=== PATIENT | female | born 1955 | race Caucasian/White ===

== ENCOUNTER → 2023-12-17 17:02 | Outpatient (REF) | payer MEDICARE, OTHER, SELFPAY | LOC: PAVMRI 17:02 | PROVIDERS: ATTENDING PHYSICIAN Specialist; FAMILY PHYSICIAN Family Medicine | DX: M25.561 Pain in right knee (principal); Z98.890 Other specified postprocedural states | CPT/HCPCS: 73721 ==

== ENCOUNTER → 2024-04-21 12:12 | Outpatient (REF) | payer MEDICARE, OTHER, SELFPAY | LOC: HWRAD 12:12 | PROVIDERS: ATTENDING PHYSICIAN Internal Medicine Cardiovascular Disease; FAMILY PHYSICIAN Family Medicine | DX: Z87.39 Personal history of other diseases of the musculoskeletal system and connective tissue (principal); Z82.49 Family history of ischemic heart disease and other diseases of the circulatory system | CPT/HCPCS: 75571 ==

== ENCOUNTER → 2024-11-05 15:17 | Outpatient (REF) | payer MEDICARE, OTHER, SELFPAY | LOC: PAVMRI 15:17 | PROVIDERS: ATTENDING PHYSICIAN Specialist; FAMILY PHYSICIAN Family Medicine | DX: M25.561 Pain in right knee (principal) | CPT/HCPCS: 73721 ==

== ENCOUNTER 2025-02-22 14:43 | Emergency (ER) | payer MEDICARE, OTHER, SELFPAY ==
[2025-02-22 14:51] VITALS: BP 133/80
[2025-02-22 15:08] LABS: % Basophils 0.7 % (0-2); % Eosinophils 0.5 % (0-6); % Immature Granulocytes 0.4 % (0-0.5); % Lymphocytes 8.9 % (20.5-51.1); % Monocytes 4.8 % (1.7-9.3); % Neutrophils 84.7 % (42.2-75.2); Absolute Basophils 0.1 10^3/uL (0-0.2); Absolute Eosinophils 0.1 10^3/uL (0-0.7); Absolute Immature Granulocytes 0.1 10^3/uL (0-0.05); Absolute Lymphocytes 1.6 10^3/uL (1.2-3.4); Absolute Monocytes 0.9 10^3/uL (0.1-0.6); Hematocrit 41.4 % (37.0-47.0); Hemoglobin 14.1 g/dL (12.0-16.0); Mean Corp Hgb Conc. 34.1 g/dL (33.0-37.0); Mean Corpuscular Hgb 29.9 pg (27.0-31.0); Mean Corpuscular Volume 87.7 fL (81.0-99.0); Mean Platelet Volume 9.8 fL (7.4-10.4); Nucleated Red Blood Cells % 0 %; Platelet Count 416 10^3/uL (130-400); Red Blood Cell Count 4.72 10^6/uL (4.20-5.40); Red Cell Dist. Width 14.3 % (11.5-14.5); White Blood Cell Count 17.7 10^3/uL (4.8-10.8)
[2025-02-22 15:26] LABS: ALT (SGPT) 16 U/L (0-35); AST (SGOT) 18 U/L (14-36); Albumin 4.2 g/dl (3.5-5.0); Alkaline Phosphatase 61 U/L (38-126); Blood Urea Nitrogen 10 mg/dl (7-17); Calcium 10.1 mg/dl (8.4-10.2); Carbon Dioxide 24 mmol/L (22-30); Chloride 105 mmol/L (98-107); Glucose 129 mg/dl (70-99); Potassium 4.2 mmol/L (3.5-5.1); Sodium 138 mmol/L (135-145); Total Bilirubin 0.7 mg/dl (0.2-1.3); Total Protein 6.8 g/dl (6.3-8.2); eGFR > 60.00
--- NOTE | 2025-02-22 17:24 | ED.GENMED ---
History of Present Illness
General
Chief Complaint: Skin Problem
Source: patient
Exam Limitations: none
Time Seen by Provider: 02/22/25 15:43
Nursing documentation reviewed up to this point in time: agreed with
History of Present Illness
History of Present Illness:
Patient presents to ED secondary to 2-day history of left elbow/forearm redness with swelling, along with low-grade fever. Denies nausea or vomiting. Denies direct trauma. Denies loss of sensation or weakness. Patient states that she woke up
yesterday morning with aforementioned swelling and redness. Denies previous history of skin infection. Denies change in activities. Denies removing insects or bugs.
Past History
Past History
ED Past Medical History: Arrthythmia and Other (Colitis, C-diff)
ED Past Surgical History: Appendectomy (2004)
Social History
Tobacco: Non-smoker
Alcohol: Occasional
Personal:
Living: with family
Review of Systems
Review of Systems
Allergies reviewed?: Yes
All Other Systems: ROS reviewed and negative except as documented in HPI and ROS
Constitutional: Reports fever
EENT: Reports no symptoms
ABD/GI: Reports no symptoms
Skin: Reports other (Arm swelling with redness)
Neurological: Reports no symptoms
Phy Exam
Physical Exam
Physical Exam:
Physical Exam
General: no apparent distress, not acutely ill. afebrile
Head: nc/at. eomi
Neck: supple. no meningeal signs.
Neuro: alert and oriented x 3. no focal neurological deficits
Skin: no rash
Psychiatric: well kept. interactive and cooperative
Extremities: left forearm: erythema along olecranon/proximal forearm with mild tenderness. no open drainage.
Course
Orders/Labs/Results
Orders:
Orders
02/22/25 15:00
Complete Blood Count/With Diff Urgent
Comprehensive Metabolic Panel Urgent
02/22/25 17:24
Doxycycline [Vibramycin] 100 mg PO NOW STA
Abnormal Lab Results
02/22/25
15:00
WBC 17.7 H 10^3/uL
(4.8-10.8)
Plt Count 416 H 10^3/uL
(130-400)
Abs Immat Gran (auto) 0.1 H 10^3/uL
(0-0.05)
Absolute Neuts (auto) 15.0 H 10^3/uL
(1.4-6.5)
Absolute Monos (auto) 0.9 H 10^3/uL
(0.1-0.6)
Neutrophils % 84.7 H %
(42.2-75.2)
Lymphocytes % 8.9 L %
(20.5-51.1)
Glucose 129 H mg/dl
(70-99)
02/22/25 15:00
02/22/25 15:00
Vital Signs
Initial and Last Documented VS:
Initial Vital Signs
Temp Pulse Resp BP Pulse Ox
99.4 F 104 18 133/80 98
02/22/25 14:51 02/22/25 14:51 02/22/25 14:51 02/22/25 14:51 02/22/25 14:51
Last Documented Vital Signs
Temp Pulse Resp BP Pulse Ox
99.4 F 104 18 133/80 98
02/22/25 14:51 02/22/25 14:51 02/22/25 14:51 02/22/25 14:51 02/22/25 14:51
MDM/Problems Addressed
MDM/Problems Addressed:
History and exam consistent with likely left elbow/forearm cellulitis. Exam inconsistent with olecranon bursitis. In light of low-grade fever along with patient's immunocompromise state, patient will be started on empiric antibiotics, i.e.
doxycycline, with recommendation to follow-up with her PCP this week. Patient advised to return to ED with worsening symptoms. Leukocytosis, likely reactive along with chronic prednisone use. Patient expresses understanding at time of discharge,
to the care of her spouse.
*Critical Care Note
Total Time (30-74mins, 75-104mins- exclusive of procedures): Not Applicable
ED Attending Note
-
Portions of this chart may have been created with voice recognition software.� Occasional wrong word or��sound alike� substitutions may have occurred due to the inherent limitations of voice recognition software.
Discharge Plan
Departure
Patient Disposition: Home (Routine Discharge)
Date of Disposition: 02/22/25
Time of Disposition: 17:24
Patient with high blood pressure during this ER visit?: Yes
Condition: Good
Discharge Problem:
Cellulitis
Instructions: Cellulitis (Skin Infection), Adult (DC)
Prescriptions:
New
doxycycline hyclate 100 mg tablet
100 mg PO BID Qty: 13 0RF
No Action
verapamil 120 MG tablet
120 mg PO QPM
aspirin 81 MG tablet,delayed release (DR/EC)
81 mg PO DAILY
polyvinyl alcohol-povidon(PF) [Refresh Classic (PF)] 10 DROPS dropperette
1 drp BOTH EYES DAILYPRN PRN (Reason: DRY EYES)
cyclosporine [Restasis] 10 DROPS dropperette
1 drp BOTH EYES BID
zolpidem [Ambien CR] 12.5 MG tablet,ext release multiphase
12.5 mg PO HSPRN PRN (Reason: SLEEP)
multivitamin with folic acid [Tab-A-Isabela] 1 TABLET tablet
1 tab PO DAILY
calcium carbonate-vitamin D3 [Caltrate 600 plus D] 1 EACH tablet,chewable
1 ea PO DAILY
oxycodone-acetaminophen 5 MG/325 MG tablet
1 tab PO Q4HPRN PRN (Reason: moderate to severe pain) Qty: 8 0RF
Referrals:
Gerard Villa, [Family Provider] -
Activity Restrictions/Additional Instructions:
As discussed, please follow-up with your primary care physician for reevaluation. Please consider return to ED with worsening symptoms. Your prescription has been sent electronically to [facility] pharmacy in [place].
Interventions
Interventions:
*Risk Screen - Suicide Last Done: 02/22/25 14:51
*General Assessment Last Done: 02/22/25 14:51
*Neglect/Abuse Screening Last Done: 02/22/25 14:51
*ED- Fall Risk Assessment Last Done: 02/22/25 15:48
*ED COVID-19 Vaccine History Last Done: 02/22/25 14:53
*Nursing Disposition Last Done: 02/22/25 17:50
ED-Skin Assessment Last Done: 02/22/25 15:48
Discharge Date and Time
Discharge Date/Time: 02/22/25 17:50
Print Language: SLOVENIAN
[2025-02-22] MEDS: VIBRAMYCIN 100 MG PO (17:32)
== END 2025-02-22 17:50 | disposition home or self-care (01) ==
LOC: EMR 14:43
PROVIDERS: Emergency Medicine; EMERGENCY PHYSICIAN Emergency Medicine; FAMILY PHYSICIAN Family Medicine
DX: L03.114 Cellulitis of left upper limb (principal); R03.0 Elevated blood-pressure reading, without diagnosis of hypertension
CPT/HCPCS: 99283; 80053; 85025

== ENCOUNTER → 2025-07-29 15:29 | Outpatient (REF) | payer MEDICARE, OTHER, SELFPAY | LOC: RAD 15:29 | PROVIDERS: ATTENDING PHYSICIAN Family Medicine | DX: D35.00 Benign neoplasm of unspecified adrenal gland (principal) | CPT/HCPCS: 74170; Q9967 ==

== ENCOUNTER → 2025-09-19 14:14 | Outpatient (REF) | payer MEDICARE, OTHER, SELFPAY | LOC: HWWDC 14:14 | PROVIDERS: ATTENDING PHYSICIAN Family Medicine | DX: Z13.820 Encounter for screening for osteoporosis (principal); Z12.31 Encounter for screening mammogram for malignant neoplasm of breast; Z78.0 Asymptomatic menopausal state | CPT/HCPCS: 77063; 77067; 77080 ==